=== PATIENT | female | born 1945 | race Caucasian/White ===

== ENCOUNTER → 2018-02-26 | Outpatient (CLI) | payer MEDICARE ==
--- NOTE | 2018-02-26 15:15 | Diagnostic Imaging Report ---
PROCEDURE:FOOT COMPLETE BILATERAL INDICATION:Polyarthritis COMPARISON:None. FINDINGS: 3 views of each foot (AP, lateral, and obliques). RIGHT FOOT: No fracture or dislocation. Joint spaces are maintained. No evidence of osseous erosion. Small Achilles tendon enthesophyte LEFT FOOT: No fracture or dislocation. The joint spaces are maintained. No evidence of osseous erosion. Soft tissue calcifications posterior to the ankle may be vascular calcification. CONCLUSION: No evidence of inflammatory arthritis. Dictated by: Morteza Tatum M.D. on 02/26/2018 at 15:16 Electronically approved by: Morteza Tatum M.D. on 02/26/2018 at 15:16
--- NOTE | 2018-02-26 15:21 | Diagnostic Imaging Report ---
PROCEDURE:HAND BILATERAL 3 OR MORE VIEWS INDICATION:Hand pain COMPARISON:None. FINDINGS: 3 views of each hand (PA, lateral, and oblique) RIGHT HAND: No fracture or dislocation. Degenerative changes at the DIP joints. No soft tissue swelling. No erosions. Exam: No fracture or dislocation. Mild degenerative changes at the DIP joints of the index and pinky fingers No erosions. 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 No evidence of inflammatory arthritis. Dictated by: Morteza Tatum M.D. on 02/26/2018 at 15:22 Electronically approved by: Morteza Tatum M.D. on 02/26/2018 at 15:22
== END ==
LOC: RAD 13:26
PROVIDERS: ATTEND Student in an Organized Health Care Education/Training Program
DX: M13.0 Polyarthritis, unspecified (principal)